=== PATIENT | female | born 1950 | race Caucasian/White ===

== ENCOUNTER → 2016-12-19 | Outpatient (CLI) | payer OTHER, MEDICARE | LOC: FIMAGING 14:50 | DX: Z12.31 Encounter for screening mammogram for malignant neoplasm of breast (principal); Z80.3 Family history of malignant neoplasm of breast | CPT/HCPCS: G0202 ==

== ENCOUNTER 2017-12-18 06:30 | Emergency (ER) | payer OTHER, MEDICARE ==
[2017-12-18 06:43] VITALS: RESP 14
[2017-12-18] MEDS ORDERED: NS 1,000 ML IV ONE ×3 (06:45→08:28)
[2017-12-18] MEDS ORDERED: ONDANSETRON 4 MG/2 ML VIAL IVP ONE (06:45)
[2017-12-18] MEDS ORDERED: KETOROLAC 15 MG/1 ML SDV IVP ONE (06:46)
[2017-12-18] MEDS ORDERED: KETOROLAC 15 MG/1 ML SDV ONE (06:47)
[2017-12-18 07:03] VITALS: TEMP 97.5
[2017-12-18 07:04] LABS: PLATELET COUNT 423 10^3/uL (150-400)
--- NOTE | 2017-12-18 07:27 | EDPHY ---
H & P Time Seen by Provider: 12/18/17 06:45 HPI/ROS: Chief complaint. Abdominal pain HPI. Patient is a 67-year-old female presents with about 1 hr history of right flank pain. It was severe and woke her up. She could not find a comfortable position. She had nausea but no vomiting. She did have a bowel movement that was not quite normal. She notes decreased urination. She has not had similar symptoms before. Pain is in the right flank radiating to the right lower quadrant. There has been no recent injury. No fever. She denies chest discomfort or trouble breathing. ROS Constitutional. no fever/chills, no weakness Eyes. no problems with vision ENT. no sore throat, no nasal drainage Cardiovascular. no chest pain Respiratory. no shortness of breath, no cough Abdominal. Right flank pain with nausea . no problems urinating MS. no calf pain/swelling, no neck/back pain, no joint pain Skin. no rash Lymph. no swollen glands Neuro. no headache, no dizziness, no difficulty walking or with speech Past Medical/Surgical History: Tonsillectomy Social History: Single, nonsmoker, no alcohol Smoking Status: Never smoked Physical Exam: General Appearance: Alert well-developed female moderate distress vital signs are stable Eyes: Pupils equal and round no pallor or injection. ENT, Mouth: Mucous membranes are moist. Respiratory: There are no retractions, lungs are clear to auscultation. Cardiovascular: Regular rate and rhythm. Gastrointestinal: Abdomen is soft and nontender, no masses, bowel sounds normal. Patient shows me tenderness in the right flank and right mid abdomen but it is not tender to palpation Neurological: Awake and alert, sensory and motor exams grossly normal. Skin: Warm and dry, no rashes. Musculoskeletal: Neck is supple nontender. Extremities symmetrical, full range of motion. Psychiatric: Patient is oriented X 3, there is no agitation. Constitutional: Initial Vital Signs Heart Rate 52 L 12/18/17 06:34 Respiratory Rate 14 12/18/17 06:34 Blood Pressure 145/77 H 12/18/17 06:34 O2 Sat (%) 97 12/18/17 06:34 O2 Delivery Mode Room Air Allergies/Adverse Reactions: Penicillins Allergy (Verified 12/18/17 06:33) Home Medications: Medication Instructions Recorded Ondansetron Odt [Zofran Odt] 4 mg PO Q4PRN PRN #4 tab 12/18/17 oxyCODONE/APAP 5/325 [Percocet 1 tab PO Q4-6PRN PRN #7 tab 12/18/17 5/325] Medical Decision Making - Diagnostics Imaging Results: Imaging Impressions Abdomen/Pelvis CT 12/18/17 07:28 Impression: 1. Distal right ureteral calculus with associated obstructive uropathy. 2. 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 3. See above report for additional findings. Results called and discussed with Andrea Bean M.D. on December 18, 2017 at 8: 17 a.m. Procedures: IV normal saline. Toradol and Zofran IV ED Course/Re-evaluation: Urine is positive for microscopic hematuria . Re-evaluation at 7:15 a.m. Patient is much more comfortable. 7:30 the patient is having some more pain and is given 0.5 mg of Dilaudid IV Re-evaluation at 8:20 a.m. And patient is pain-free. Patient and I discussed imaging and lab results. We discussed treatment including criteria for return and importance of follow-up and further evaluation. She expresses understanding and agreement After 2 L of IV saline she still does not have an urge to urinate. We will hang 1/3 L of saline Recheck at 10:05 a.m. And patient is symptom free Differential Diagnosis: I considered diverticulitis, appendicitis, kidney stone, pyelonephritis - Data Points Laboratory Results: Laboratory Results 12/18/17 06:58 12/18/17 06:58 12/18/17 12/18/17 12/18/17 06:58 06:58 06:52 WBC 13.51 10^3/uL H 10^3/uL (3.80-9.50) RBC 4.89 10^6/uL 10^6/uL (4.18-5.33) Hgb 15.1 g/dL g/dL (12.6-16.3) Hct 46.2 % % (38.0-47.0) MCV 94.5 fL fL (81.5-99.8) MCH 30.9 pg pg (27.9-34.1) MCHC 32.7 g/dL g/dL (32.4-36.7) RDW 12.2 % % (11.5-15.2) Plt Count 423 10^3/uL H 10^3/uL (150-400) MPV 9.3 fL fL (8.7-11.7) Neut % (Auto) 74.0 % % (39.3-74.2) Lymph % (Auto) 19.4 % % (15.0-45.0) [place]y % (Auto) 4.0 % L % (4.5-13.0) Eos % (Auto) 1.7 % % (0.6-7.6) Baso % (Auto) 0.4 % % (0.3-1.7) Nucleat RBC Rel Count 0.0 % % (0.0-0.2) Absolute Neuts (auto) 9.99 10^3/uL H 10^3/uL (1.70-6.50) Absolute Lymphs (auto) 2.62 10^3/uL 10^3/uL (1.00-3.00) Absolute Monos (auto) 0.54 10^3/uL 10^3/uL (0.30-0.80) Absolute Eos (auto) 0.23 10^3/uL 10^3/uL (0.03-0.40) Absolute Basos (auto) 0.06 10^3/uL 10^3/uL (0.02-0.10) Absolute Nucleated RBC 0.00 10^3/uL 10^3/uL (0-0.01) Immature Gran % 0.5 % % (0.0-1.1) Immature Gran # 0.07 10^3/uL 10^3/uL (0.00-0.10) Sodium 142 mEq/L mEq/L (135-145) Potassium 3.9 mEq/L mEq/L (3.5-5.2) Chloride 107 mEq/L mEq/L (97-110) Carbon Dioxide 22 mEq/l mEq/l (22-31) Anion Gap 13 mEq/L mEq/L (8-16) BUN 25 mg/dL H mg/dL (7-23) Creatinine 1.2 mg/dL H mg/dL (0.6-1.0) Estimated GFR 45 Glucose 115 mg/dL H mg/dL (70-100) Calcium 9.8 mg/dL mg/dL (8.5-10.4) Urine Color YELLOW Urine Appearance HAZY Urine pH 5.0 (5.0-7.5) Ur Specific Terry 1.025 (1.002-1.030) Urine Protein NEGATIVE (NEGATIVE) Urine Ketones NEGATIVE (NEGATIVE) Urine Blood 2+ H (NEGATIVE) Urine Nitrate NEGATIVE (NEGATIVE) Urine Bilirubin NEGATIVE (NEGATIVE) Urine Urobilinogen NEGATIVE EU EU (0.2-1.0) Ur Leukocyte Esterase NEGATIVE (NEGATIVE) Urine RBC 25-50 /hpf H /hpf (0-3) Urine WBC 3-5 /hpf H /hpf (0-3) Ur Epithelial Cells TRACE /lpf /lpf (NONE-1+) Urine Mucus TRACE /lpf /lpf (NONE-1+) Urine Glucose NEGATIVE (NEGATIVE) Medications Given: Discontinued Medications Hydromorphone HCl (Dilaudid) 0.5 mg IVP EDNOW ONE Stop: 12/18/17 07:41 Last Admin: 12/18/17 07:45 Dose: 0.5 mg Sodium Chloride (Ns) 1,000 mls @ 0 mls/hr IV ONCE ONE; Wide Open PRN Reason: Protocol Stop: 12/18/17 06:46 Last Admin: 12/18/17 06:56 Dose: 1,000 mls Sodium Chloride (Ns) 1,000 mls @ 0 mls/hr IV EDNOW ONE; Wide Open PRN Reason: Protocol Stop: 12/18/17 07:28 Last Admin: 12/18/17 07:37 Dose: 1,000 mls Sodium Chloride (Ns) 1,000 mls @ 0 mls/hr IV ONCE ONE; Wide Open PRN Reason: Protocol Stop: 12/18/17 08:29 Last Admin: 12/18/17 08:33 Dose: 1,000 mls Ketorolac Tromethamine (Toradol) 15 mg IVP EDNOW ONE Stop: 12/18/17 06:47 Last Admin: 12/18/17 06:56 Dose: 15 mg Ondansetron HCl (Zofran) 4 mg IVP EDNOW ONE Stop: 12/18/17 06:46 Last Admin: 12/18/17 06:57 Dose: 4 mg Departure - Departure Disposition: Home, Routine, Self-Care Clinical Impression: Calculus of right kidney Condition: Good Instructions: Renal Colic (ED), Kidney Stones (ED) Additional Instructions: Drink plenty of fluids and stay hydrated. Ibuprofen 200 mg every 6 hr as needed for discomfort. Percocet in addition if needed pain. Zofran if needed for nausea. Strain all urine next 24 hr and save stone for the urologist. Return over the weekend for worsening pain or symptoms. Follow-up with urologist next week Referrals: NONE *PRIMARY CARE P,. [Primary Care Provider] - As per Instructions Dillon Lucas MD [Medical Doctor] - 5-7 days, call for appt. Prescriptions: Ondansetron Odt [Zofran Odt] 4 mg PO Q4PRN PRN #4 tab PRN Reason: Nausea/Vomiting, Use 1st oxyCODONE/APAP 5/325 [Percocet 5/325] 1 tab PO Q4-6PRN PRN #7 tab PRN Reason: Pain, Moderate
[2017-12-18] MEDS ORDERED: HYDROmorphONE/DILAUDID 1 MG/ML INJ IVP ONE (07:40)
[2017-12-18] MEDS ORDERED: HYDROmorphONE/DILAUDID 2 MG/ML INJ ONE (07:42)
[2017-12-18 10:28] VITALS: BP 99/66; PULSE 55; O2SAT 100
== END 2017-12-18 10:27 | disposition home or self-care (01) ==
DX: N20.0 Calculus of kidney (principal); E86.9 Volume depletion, unspecified
CPT/HCPCS: 74176; 96361; 96374; 96375; 99285; J1170; J1885; J2405

== ENCOUNTER → 2017-12-29 | Outpatient (CLI) | payer OTHER, MEDICARE | LOC: FIMAGING 09:46 | PROVIDERS: ATTEND Specialist | DX: Z09 Encounter for follow-up examination after completed treatment for conditions other than malignant neoplasm (principal); Z98.890 Other specified postprocedural states; M41.86 Other forms of scoliosis, lumbar region ==

== ENCOUNTER → 2017-12-29 | Outpatient (CLI) | payer OTHER, MEDICARE | LOC: FIMAGING 15:55 | PROVIDERS: ATTEND Obstetrics & Gynecology Gynecology | DX: Z12.31 Encounter for screening mammogram for malignant neoplasm of breast (principal) ==

== ENCOUNTER → 2019-01-07 | Outpatient (CLI) | payer OTHER, MEDICARE | LOC: FIMAGING 14:14 | PROVIDERS: ATTEND Obstetrics & Gynecology Gynecology | DX: Z12.31 Encounter for screening mammogram for malignant neoplasm of breast (principal); Z80.3 Family history of malignant neoplasm of breast ==